=== PATIENT | female | born 1960 | race Caucasian/White ===

== ENCOUNTER 2017-06-23 09:02 | Emergency (ER) | payer BC ==
[2017-06-23 10:18] VITALS: BP 154/75
--- NOTE | 2017-06-23 10:38 | UC ---
FLU HPI - HPI Summary HPI Summary: Starting on Wednesday she had flu like symptoms such as cough, congestion, sore throat, chills, myalgias. Her had the flu and students at work had strep throat. She has no prior chronic lung conditions. Non smoker. She was on tamiflu during the weekend. - History of Current Complaint Chief Complaint: UCGeneralIllness Stated Complaint: FEVER,ST,EARS Time Seen by Provider: 06/23/17 10:19 Hx Obtained From: Patient Onset/Duration: Gradual Onset, Lasting Days, Still Present Severity Currently: Moderate Severity Initially: Moderate Pain Intensity: 5 Associated Signs & Symptoms: Positive: Fever, F/C, Myalgia, Cough, Sore Throat, Nasal Congestion. Negative: Vomiting, Diarrhea Related Hx: Possible Flu/Infectious Exposure - Allergy/Home Medications Allergies/Adverse Reactions: Allergies Allergy/AdvReac Type Severity Reaction Status Date / Time Cephalosporins Allergy Hives Verified 06/23/17 10:10 codeine Allergy Nausea Verified 06/23/17 10:10 Sulfa (Sulfonamide Allergy Rash Verified 06/23/17 10:10 Antibiotics) Home Medications: Home Medications Naproxen Sodium [Aleve] 06/23/17 [History] Pseudoephedrine HCl [Sudafed] 06/23/17 [History] PMH/Surg Hx/FS Hx/Imm Hx Previously Healthy: Yes - Surgical History Surgical History: Yes Surgery Procedure, Year, and Place: [place] [facility] [place] [facility] [place] BILATERAL foot [place]. 1993 tubal LIGATION [place]. 1987 breast [place] [facility]. 1985 tonsilectomy [place] - Family History Known Family History: Positive: Other - no related illness in 1st degree relatives. - Social History Alcohol Use: Daily Alcohol Amount: 1 GLASS/NIGHT Substance Use Type: None Smoking Status (MU): Never Smoked Tobacco Review of Systems Constitutional: Fever, Chills ENT: Sore Throat, Ear Ache, Sinus Congestion, Sinus Pain/Tenderness Respiratory: Cough All Other Systems Reviewed And Are Negative: Yes Physical Exam Triage Information Reviewed: Yes Appearance: Well-Appearing, No Pain Distress, Well-Nourished Vital Signs: Initial Vital Signs Temp 99.3 F 06/23/17 10:13 Pulse 74 06/23/17 10:13 Resp 16 06/23/17 10:13 BP 154/75 06/23/17 10:13 Pulse Ox 100 06/23/17 10:13 Vital Signs Reviewed: Yes Eyes: Positive: Conjunctiva Clear ENT: Positive: Normal ENT inspection, Hearing grossly normal, Nasal congestion, TM bulging, Uvula midline. Negative: TM dull, TM red, Tonsillar swelling, Tonsillar exudate, Trismus Neck: Positive: Supple, Nontender, No Lymphadenopathy Respiratory: Positive: Lungs clear, Normal breath sounds, No respiratory distress, No accessory muscle use. Negative: Respiratory distress, Decreased breath sounds, Accessory muscle use, Crackles, Rhonchi, Wheezing Cardiovascular: Positive: No Murmur, Pulses Normal Abdomen Description: Positive: No Organomegaly. Negative: Distended, Guarding Musculoskeletal: Positive: Strength Intact, ROM Intact, No Edema Neurological: Positive: Alert, Muscle Tone Normal. Negative: Fatigued Psychological: Positive: Age Appropriate Behavior Skin: Negative: rashes Flu Course/Dx - Course Course Of Treatment: Influenza like illness. She has had sinus pain. Ears are not infected. Seh says her chest feels better today. No clinical signs of pneumonia. Amoxicillin for sinusitis if symptoms do not improve in 2-3 days. focus on decongestants. - Differential Dx/Diagnosis Provider Diagnoses: uri. sinus pressure Discharge - Discharge Plan Condition: Good Disposition: HOME Prescriptions: DOXYcycline CAP(*) [DOXYcycline 100MG CAP(*)] 100 mg PO BID #[id number] cap Patient Education Materials: Upper Respiratory Infection (ED) Referrals: Sonny Wilson MD [Primary Care Provider] - Additional Instructions: Return for any worsening.
== END 2017-06-23 10:46 | disposition home or self-care (01) ==
LOC: UCCORT 09:02
DX: J11.1 Influenza due to unidentified influenza virus with other respiratory manifestations (principal)
CPT/HCPCS: 87651; 99212; G0463